=== PATIENT | female | born 1960 | race Caucasian/White ===

== ENCOUNTER → 2016-07-06 | Outpatient (CLI) | payer BC ==
--- NOTE | 2016-07-06 07:55 | US ---
EXAMINATION TYPE: US thyroid st tissue head/neck DATE OF EXAM: 07/06/2016 7:07 AM COMPARISON: NONE CLINICAL HISTORY: E04.1 Thyroid Nodule. Fullness on the left when swallowing, choking sensation GLAND SIZE: Right Lobe: 5.3 x 1.7 x 1.6 cm Overall Parenchyma: homogeneous Left Lobe: 5.2 x 1.2 x 1.3 cm Overall Parenchyma: homogeneous Isthmus Thickness: 0.2 cm NODULES RIGHT: # of nodules measured on right: 1 1. 0.6 X 0.3 x 0.5 cm hypoechoic solid nodule at the mid pole with well-defined margins. This nodu le is wider than tall and shows intranodular vascularity. 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 IMPRESSION: Nonspecific subcentimeter mixed nodule right thyroid lobe.
== END | disposition home or self-care (01) ==
LOC: RADUSWWP 06:42
PROVIDERS: ATTEND Otolaryngology
DX: E04.1 Nontoxic single thyroid nodule (principal)
CPT/HCPCS: 36415; 76536; 84439; 84443; 86376